=== PATIENT | female | born 1950 | race Caucasian/White ===

== ENCOUNTER 2020-12-02 17:57 | Inpatient (IN) | payer MEDICARE ==
[~2020-12-02] VITALS: Ht 162.6 cm; Wt 81.6 kg
[2020-12-02] MEDS ORDERED: AUGMENTIN 500-500 MG PO (22:23)
[2020-12-02] MEDS ORDERED: MIRAPEX1 MG PO (22:23)
[2020-12-02] MEDS ORDERED: GLUCOTROL 10 MG10 MG PO (22:23)
[2020-12-02] MEDS ORDERED: LASIX40 MG PO (22:24)
[2020-12-02] MEDS ORDERED: PLAVIX75 MG PO (22:24)
[2020-12-02] MEDS ORDERED: GEMFIBROZIL600 MG PO (22:24)
[2020-12-02] MEDS ORDERED: INDERAL TAB 4040 MG PO (22:25)
[2020-12-02] MEDS ORDERED: ZESTRIL20 MG PO (22:25)
[2020-12-02] MEDS ORDERED: POTASSIUM CHLO10 MEQ PO (22:26)
[2020-12-03 00:01] LABS: BUN/CREATININE RATIO 30 (0-10)
--- NOTE | 2020-12-03 00:47 | NUR ---
0014 - SECURITY TECH, LOLITA, CALLED TO NOTIFY OF MD TRANSFERRING PATIENT TO ICU FOR INSULIN DRIP. LOLITA STATES "I WILL SEE IF ANYONE WILL TAKE THEM."
--- NOTE | 2020-12-03 01:59 | NUR ---
0112 DAUGHTER, JEANNE, WAS CALLED TO LET HER KNOW PATIENT WILL BE MOVED TO ICU FOR INSULIN DRIP.
[2020-12-03 04:23] LABS: HEMOGLOBIN 13.9 gm/dl (12.3-15.3); RED BLOOD COUNT 4.53 M/UL (4.00-5.10); WHITE BLOOD COUNT 14.4 K/UL (4.5-11.0)
[2020-12-03 04:42] LABS: BUN/CREATININE RATIO 26 (0-10)
[2020-12-04 05:18] LABS: HEMOGLOBIN 12.6 gm/dl (12.3-15.3); RED BLOOD COUNT 4.09 M/UL (4.00-5.10); WHITE BLOOD COUNT 15.6 K/UL (4.5-11.0)
[2020-12-04 05:33] LABS: BUN/CREATININE RATIO 24 (0-10)
[2020-12-05 02:59] LABS: RED BLOOD COUNT 4.18 M/UL (4.00-5.10); WHITE BLOOD COUNT 16.3 K/UL (4.5-11.0)
[2020-12-05 03:33] LABS: BUN/CREATININE RATIO 17 (0-10)
[2020-12-06 04:23] LABS: HEMOGLOBIN 12.5 gm/dl (12.3-15.3); RED BLOOD COUNT 4.09 M/UL (4.00-5.10); WHITE BLOOD COUNT 13.4 K/UL (4.5-11.0)
[2020-12-06 04:36] LABS: BUN/CREATININE RATIO 17 (0-10)
[2020-12-07 07:38] LABS: HEMOGLOBIN 12.6 gm/dl (12.3-15.3); RED BLOOD COUNT 4.09 M/UL (4.00-5.10)
[2020-12-07 07:58] LABS: BUN/CREATININE RATIO 19 (0-10)
[2020-12-08 04:50] LABS: HEMOGLOBIN 11.7 gm/dl (12.3-15.3); RED BLOOD COUNT 3.81 M/UL (4.00-5.10)
[2020-12-08 05:14] LABS: WHITE BLOOD COUNT 12.2 K/UL (4.5-11.0)
[2020-12-08 05:23] LABS: BUN/CREATININE RATIO 22 (0-10)
--- NOTE | 2020-12-08 21:30 | NUR ---
PATIENT REPEATEDLY ASKING FOR CIGARETTE . REORIENTED THAT THIS IS AN ICU AND NO SMOKING ALLOWED . STATES SHE WILL GO OUTSIDETO SMOKE. REORIENTED THAT [facility] ARE A NON-SMOKING FACILITY. APPEARS TO BE CONFUSED AT TIMES . AT [facility]ED[facility]ES. PATIENT REMAINS UP IN CHAIR AT THIS TIME ALARM ON.
[2020-12-09 05:59] LABS: BUN/CREATININE RATIO 20 (0-10)
[2020-12-09 09:23] LABS: HEMOGLOBIN 10.9 gm/dl (12.3-15.3); RED BLOOD COUNT 3.58 M/UL (4.00-5.10); WHITE BLOOD COUNT 11.8 K/UL (4.5-11.0)
[2020-12-10 04:10] LABS: HEMOGLOBIN 11.6 gm/dl (12.3-15.3); RED BLOOD COUNT 3.81 M/UL (4.00-5.10); WHITE BLOOD COUNT 11.5 K/UL (4.5-11.0)
[2020-12-10 04:38] LABS: BUN/CREATININE RATIO 17 (0-10)
[2020-12-11 05:02] LABS: HEMOGLOBIN 11.1 gm/dl (12.3-15.3); RED BLOOD COUNT 3.64 M/UL (4.00-5.10); WHITE BLOOD COUNT 10.4 K/UL (4.5-11.0)
[2020-12-11 05:18] LABS: BUN/CREATININE RATIO 19 (0-10)
--- NOTE | 2020-12-12 01:54 | NUR ---
PULSE CHECK IN LEFT LEG . NO DP PULSE NOTED WITH DOPPLER , POSITIVE DOPPLERED POSTERIOR TIBAL PULSE . RIGHT LEG PULSE CHECK . NO DP PULSE NOTED WITH DOPPLER, POSITIVE POSTERIOR PULSE WITH DOPPLER . THIS IS UNCHANGED FROM INITIAL ASSESSMENT. REPORTED THAT MD IS AWARE NO DOPPLERED DP PULSES WERE PRESENT.
[2020-12-12 05:23] LABS: HEMOGLOBIN 11.2 gm/dl (12.3-15.3); RED BLOOD COUNT 3.62 M/UL (4.00-5.10); WHITE BLOOD COUNT 10.2 K/UL (4.5-11.0)
--- NOTE | 2020-12-12 19:33 | NUR ---
CONFUSED. KEEPS PULLING OFF MONITORING EQUIPMENT. SHE THINKS SHES IN "[place]" . REORIENTED TO SURROUNDINGS.
--- NOTE | 2020-12-13 03:48 | NUR ---
PULLING MONITORING EQUIPMENT OFF , GETTING UNDRESSED. ATTEMPTING TO REORIENT TO SURROUNDINGS .
[2020-12-13 05:15] LABS: HEMOGLOBIN 10.9 gm/dl (12.3-15.3); RED BLOOD COUNT 3.61 M/UL (4.00-5.10); WHITE BLOOD COUNT 9.5 K/UL (4.5-11.0)
[2020-12-13 05:33] LABS: BUN/CREATININE RATIO 14 (0-10)
[2020-12-13] MEDS ORDERED: FAMOTIDINE20 MG PO (15:39)
[2020-12-13] MEDS ORDERED: HYDROCODON-ACE1 EAC4 PO (15:39)
[2020-12-13] MEDS ORDERED: FISH OIL EC 1,1 EACH PO (15:39)
[2020-12-13] MEDS ORDERED: AMLODIPINE BESYL5 MG PO (15:39)
[2020-12-13] MEDS ORDERED: STIMULANT LAXA1 EACH PO (15:39)
[2020-12-13] MEDS ORDERED: LANTUS INS100 UTS/M1 SC (15:44)
[2020-12-13] MEDS ORDERED: NICOTINE PATCH1 EAC2 TOP (15:44)
[2020-12-13] MEDS ORDERED: HUMALOG 10100 UNITS/ SC ×2 (15:44)
[2020-12-13] MEDS ORDERED: BACTRIM DS TAB1 EACH PO (15:54)
[2020-12-13] MEDS ORDERED: CIPROFLOXACIN750 MG PO (15:54)
--- NOTE | 2020-12-13 16:43 | NUR ---
YOMI (DAUGHTER) WANTS TO BE NOTIFIED IF SHE GOES TO [place] TOMORROW OR NOT AT [phone], SHE REPORTS LIVING CLOSEST TO HER AND HELPS WITH HER
[2020-12-14 04:05] LABS: HEMOGLOBIN 11.5 gm/dl (12.3-15.3); RED BLOOD COUNT 3.78 M/UL (4.00-5.10); WHITE BLOOD COUNT 11.2 K/UL (4.5-11.0)
[2020-12-14 04:38] LABS: BUN/CREATININE RATIO 16 (0-10)
[2020-12-14] MEDS ORDERED: CIPROFLOXACIN750 MG PO (14:31)
[2020-12-15 03:03] LABS: HEMOGLOBIN 11.3 gm/dl (12.3-15.3); RED BLOOD COUNT 3.75 M/UL (4.00-5.10); WHITE BLOOD COUNT 11.5 K/UL (4.5-11.0)
[2020-12-15 03:29] LABS: BUN/CREATININE RATIO 24 (0-10)
--- NOTE | 2020-12-15 17:59 | NUR ---
AT 1700 ACCUCHECK, PATIENT WAS HYPOGLYCEMIC. GAVE PATIENT JUICE PER PATIENT REQUEST. WENT BACK TO RE-CHECK, AND PATIENT HAD DRUNK JUICE AND EATEN DINNER. RECHECKED FSBS AND PATIENT WAS [id number]. SHE REFUSED INSULIN AT THIS POINT, SAID IT WAS JUST HIGH CAUSE SHE HAD JUST EATEN AND SHE DIDN'T WANT IT TO GET LOW AGAIN
[2020-12-16 04:15] LABS: HEMOGLOBIN 11.5 gm/dl (12.3-15.3); RED BLOOD COUNT 3.77 M/UL (4.00-5.10); WHITE BLOOD COUNT 9.1 K/UL (4.5-11.0)
[2021-02-05] MEDS ORDERED: LEVOFLOXACIN500 MG PO (19:32)
[2021-02-05] MEDS ORDERED: BACTRIM DS TAB1 EACH PO (19:32)
== END 2020-12-17 17:51 | DRG 853 ==
LOC: PROG CARE 21:54 → MED SURG 4 21:54 → CCU 21:54 → CDU 12-03 00:16 → CCU 12-03 01:58 → MED SURG 4 12-13 15:19
PROVIDERS: Family Medicine; Internal Medicine; Surgery; ADMIT Internal Medicine
PROC: B24BZZZ Ultrasonography of Heart with Aorta (ICD-10-PCS; 2020-12-03)
PROC: 047K3ZZ Dilation of Right Femoral Artery, Percutaneous Approach (ICD-10-PCS; 2020-12-05)
PROC: 047M3ZZ Dilation of Right Popliteal Artery, Percutaneous Approach (ICD-10-PCS; 2020-12-05)
PROC: 047T3ZZ Dilation of Right Peroneal Artery, Percutaneous Approach (ICD-10-PCS; 2020-12-05)
PROC: 047P3ZZ Dilation of Right Anterior Tibial Artery, Percutaneous Approach (ICD-10-PCS; 2020-12-05)
PROC: 047L3Z1 Dilation of Left Femoral Artery using Drug-Coated Balloon, Percutaneous Approach (ICD-10-PCS; 2020-12-10)
PROC: 04FJ3ZZ Fragmentation of Left External Iliac Artery, Percutaneous Approach (ICD-10-PCS; 2020-12-10)
PROC: 04FL3ZZ Fragmentation of Left Femoral Artery, Percutaneous Approach (ICD-10-PCS; 2020-12-10)
PROC: 047N3Z1 Dilation of Left Popliteal Artery using Drug-Coated Balloon, Percutaneous Approach (ICD-10-PCS; principal; 2020-12-10 08:30)
DX: A41.52 Sepsis due to Pseudomonas (principal); E11.10 Type 2 diabetes mellitus with ketoacidosis without coma; G93.41 Metabolic encephalopathy; E11.52 Type 2 diabetes mellitus with diabetic peripheral angiopathy with gangrene; I96 Gangrene, not elsewhere classified; L03.116 Cellulitis of left lower limb; F05 Delirium due to known physiological condition; I82.811 Embolism and thrombosis of superficial veins of right lower extremity; L97.929 Non-pressure chronic ulcer of unspecified part of left lower leg with unspecified severity; A41.89 Other specified sepsis; E78.5 Hyperlipidemia, unspecified; E11.628 Type 2 diabetes mellitus with other skin complications; L89.152 Pressure ulcer of sacral region, stage 2; K80.50 Calculus of bile duct without cholangitis or cholecystitis without obstruction; I16.0 Hypertensive urgency; F17.200 Nicotine dependence, unspecified, uncomplicated; E87.6 Hypokalemia; E27.8 Other specified disorders of adrenal gland; E11.622 Type 2 diabetes mellitus with other skin ulcer; F41.9 Anxiety disorder, unspecified; F32.9 Major depressive disorder, single episode, unspecified; D28.7 Benign neoplasm of other specified female genital organs; Z82.49 Family history of ischemic heart disease and other diseases of the circulatory system; Z79.84 Long term (current) use of oral hypoglycemic drugs; Z79.02 Long term (current) use of antithrombotics/antiplatelets; Z79.899 Other long term (current) drug therapy
CPT/HCPCS: ECHO; 36415; 71045; 75630; 80048; 80053; 80202; 80307; 82009; 82140; 82550; 82553; 82607; 82962; 83036; 83605; 83735; 83880; 84100; 84132; 84439; 84443; 84484; 85025; 85027; 85610; 85730; 86140; 86850; 86900; 86901; 87040; 87070; 87077; 87081; 87086; 87186; 87205; 93005; 93306; 93925; 93970; 97110; 97110-GP-CQ; 97116; 97116-GP-CQ; 97161; 97530; 97530-GP-CQ; A6212; C1725; C1769; C1887; C1894; C2623; J0360; J0692; J1100; J1644; J1650; J2001; J2250; J2270; J2370; J2405; J2704; J2710; J2720; J3010; J3370; J3475; J7040; J7050; J7070; J7120; Q9962; U0002

== ENCOUNTER → 2020-12-23 | Outpatient (CLI) | payer MEDICARE ==
[~2020-12-23] MED LIST: AMLODIPINE BESYL5 MG PO; AMOXICILLIN875 MG PO; AUGMENTIN 500-500 MG PO; BACTRIM DS TAB1 EACH PO; BUDESONIDE0.5 MG/2 M NEB; CHRONULAC20 GM/30 M PO; CIPROFLOXACIN750 MG PO; CLOPIDOGREL75 MG PO; DOCUSATE SODIU100 MG PO; DONEPEZIL HCL5 MG PO; DOXYCYCLINE HY100 MG PO; FAMOTIDINE20 MG PO; FERROUS SULFAT325 M2 PO; FISH OIL EC 1,1 EACH PO; FLORASTOR250 MG PO; FUROSEMIDE40 MG PO; GEMFIBROZIL600 MG PO; GLUCOTROL 10 MG10 MG PO; HUMALOG 10100 UNITS/ SC; HYDRALAZINE HCL25 MG PO; HYDROCODON-ACE1 EAC2 PO; HYDROCODON-ACE1 EAC4 PO; INDERAL TAB 4040 MG PO; INSULIN LI100 UNIT/2 SC; IPRAT-ALBUT 0.5-3 ML NEB; LANTUS INS100 UTS/M1 SC; LANTUS SOL100 UNIT/1 SC; LASIX40 MG PO; LEVOFLOXACIN500 MG PO; LEVOFLOXACIN750 MG PO; LIPITOR TAB 1010 MG PO; LISINOPRIL20 MG PO; LOPID600 MG PO; LOPRESSOR 50 MG50 MG PO; MIRAPEX1 MG PO; MONTELUKAST SOD10 MG PO; NICOTINE PATCH1 EAC2 TOP; PLAVIX75 MG PO; POTASSIUM CHLO10 MEQ PO; STIMULANT LAXA1 EACH PO; ZESTRIL20 MG PO; ZOCOR20 MG PO; ZOFRAN 4 MG TAB4 MG PO
== END ==
LOC: WCC 09:00
DX: E11.622 Type 2 diabetes mellitus with other skin ulcer (principal); L97.921 Non-pressure chronic ulcer of unspecified part of left lower leg limited to breakdown of skin; L97.911 Non-pressure chronic ulcer of unspecified part of right lower leg limited to breakdown of skin; I73.9 Peripheral vascular disease, unspecified; L97.929 Non-pressure chronic ulcer of unspecified part of left lower leg with unspecified severity; L97.919 Non-pressure chronic ulcer of unspecified part of right lower leg with unspecified severity; I25.10 Atherosclerotic heart disease of native coronary artery without angina pectoris; E78.5 Hyperlipidemia, unspecified; F32.9 Major depressive disorder, single episode, unspecified; F41.9 Anxiety disorder, unspecified; I10 Essential (primary) hypertension; Z79.4 Long term (current) use of insulin
CPT/HCPCS: G0463

== ENCOUNTER → 2020-12-31 | Outpatient (CLI) | payer MEDICARE | LOC: WCC 11:00 | DX: I87.2 Venous insufficiency (chronic) (peripheral) (principal); L97.921 Non-pressure chronic ulcer of unspecified part of left lower leg limited to breakdown of skin; L97.912 Non-pressure chronic ulcer of unspecified part of right lower leg with fat layer exposed; E11.51 Type 2 diabetes mellitus with diabetic peripheral angiopathy without gangrene; E78.5 Hyperlipidemia, unspecified; F32.9 Major depressive disorder, single episode, unspecified; F41.9 Anxiety disorder, unspecified; I10 Essential (primary) hypertension; Z79.4 Long term (current) use of insulin; Z79.01 Long term (current) use of anticoagulants; Z79.2 Long term (current) use of antibiotics; Z79.899 Other long term (current) drug therapy | CPT/HCPCS: 97597; 97598 ==

== ENCOUNTER → 2021-01-08 | Outpatient (CLI) | payer MEDICARE | LOC: WCC 10:00 | DX: E11.622 Type 2 diabetes mellitus with other skin ulcer (principal); L97.929 Non-pressure chronic ulcer of unspecified part of left lower leg with unspecified severity; L97.919 Non-pressure chronic ulcer of unspecified part of right lower leg with unspecified severity; E11.51 Type 2 diabetes mellitus with diabetic peripheral angiopathy without gangrene; I10 Essential (primary) hypertension; I25.10 Atherosclerotic heart disease of native coronary artery without angina pectoris; E78.5 Hyperlipidemia, unspecified; F32.9 Major depressive disorder, single episode, unspecified; F41.9 Anxiety disorder, unspecified; Z79.4 Long term (current) use of insulin | CPT/HCPCS: 97597 ==

== ENCOUNTER → 2021-01-22 | Outpatient (CLI) | payer MEDICARE | LOC: WCC 10:00 | DX: E11.622 Type 2 diabetes mellitus with other skin ulcer (principal); L97.921 Non-pressure chronic ulcer of unspecified part of left lower leg limited to breakdown of skin; L97.912 Non-pressure chronic ulcer of unspecified part of right lower leg with fat layer exposed; E11.51 Type 2 diabetes mellitus with diabetic peripheral angiopathy without gangrene; I25.10 Atherosclerotic heart disease of native coronary artery without angina pectoris; E78.5 Hyperlipidemia, unspecified; F32.9 Major depressive disorder, single episode, unspecified; F41.9 Anxiety disorder, unspecified; I10 Essential (primary) hypertension; Z79.4 Long term (current) use of insulin; Z79.02 Long term (current) use of antithrombotics/antiplatelets; Z79.2 Long term (current) use of antibiotics; Z79.899 Other long term (current) drug therapy ==

== ENCOUNTER → 2021-01-31 | Outpatient (CLI) | payer MEDICARE | LOC: WCC 08:29 | DX: E11.622 Type 2 diabetes mellitus with other skin ulcer (principal); L97.921 Non-pressure chronic ulcer of unspecified part of left lower leg limited to breakdown of skin; L97.912 Non-pressure chronic ulcer of unspecified part of right lower leg with fat layer exposed; E11.51 Type 2 diabetes mellitus with diabetic peripheral angiopathy without gangrene; I25.10 Atherosclerotic heart disease of native coronary artery without angina pectoris; E78.5 Hyperlipidemia, unspecified; F32.9 Major depressive disorder, single episode, unspecified; F41.9 Anxiety disorder, unspecified; I10 Essential (primary) hypertension; Z88.1 Allergy status to other antibiotic agents; Z79.4 Long term (current) use of insulin; Z79.02 Long term (current) use of antithrombotics/antiplatelets; Z79.899 Other long term (current) drug therapy | CPT/HCPCS: 87070; 87077; 87186; 87205; 97597 ==

== ENCOUNTER 2021-02-07 11:13 | Inpatient (IN) | payer MEDICARE ==
[~2021-02-07] VITALS: Ht 154.9 cm; Wt 81.8 kg
[~2021-02-07 11:13] MED LIST changes: -AMOXICILLIN875 MG PO; -BUDESONIDE0.5 MG/2 M NEB; -CHRONULAC20 GM/30 M PO; -CLOPIDOGREL75 MG PO; -DOCUSATE SODIU100 MG PO; -DONEPEZIL HCL5 MG PO; -DOXYCYCLINE HY100 MG PO; -FERROUS SULFAT325 M2 PO; -FLORASTOR250 MG PO; -FUROSEMIDE40 MG PO; -HYDRALAZINE HCL25 MG PO; -HYDROCODON-ACE1 EAC2 PO; -INSULIN LI100 UNIT/2 SC; -IPRAT-ALBUT 0.5-3 ML NEB; -LANTUS SOL100 UNIT/1 SC; -LEVOFLOXACIN750 MG PO; -LIPITOR TAB 1010 MG PO; -LISINOPRIL20 MG PO; -LOPID600 MG PO; -LOPRESSOR 50 MG50 MG PO; -MONTELUKAST SOD10 MG PO; -ZOCOR20 MG PO; -ZOFRAN 4 MG TAB4 MG PO
[2021-02-07 12:04] LABS: HEMOGLOBIN 9.3 gm/dl (12.3-15.3); RED BLOOD COUNT 3.06 M/UL (4.00-5.10)
[2021-02-07 12:34] LABS: BUN/CREATININE RATIO 17 (0-10)
[2021-02-07] MEDS ORDERED: CLOPIDOGREL75 MG PO (19:33)
[2021-02-07] MEDS ORDERED: HYDROCODON-ACE1 EAC2 PO (19:33)
[2021-02-07] MEDS ORDERED: LOPID600 MG PO (19:34)
[2021-02-07] MEDS ORDERED: FUROSEMIDE40 MG PO (19:34)
[2021-02-07] MEDS ORDERED: GLUCOTROL 10 MG10 MG PO (19:35)
[2021-02-07] MEDS ORDERED: LISINOPRIL20 MG PO (19:35)
[2021-02-07] MEDS ORDERED: HYDRALAZINE HCL25 MG PO (19:35)
[2021-02-07] MEDS ORDERED: LOPRESSOR 50 MG50 MG PO (19:36)
[2021-02-07] MEDS ORDERED: MONTELUKAST SOD10 MG PO (19:36)
[2021-02-07] MEDS ORDERED: POTASSIUM CHLO10 MEQ PO (19:37)
[2021-02-07] MEDS ORDERED: ZOFRAN 4 MG TAB4 MG PO (19:37)
[2021-02-07] MEDS ORDERED: MIRAPEX1 MG PO (19:38)
[2021-02-07] MEDS ORDERED: ZOCOR20 MG PO (19:38)
[2021-02-07] MEDS ORDERED: AMLODIPINE BESYL5 MG PO (19:39)
[2021-02-07] MEDS ORDERED: LIPITOR TAB 1010 MG PO (19:39)
[2021-02-07] MEDS ORDERED: LANTUS SOL100 UNIT/1 SC (19:40)
[2021-02-07] MEDS ORDERED: FERROUS SULFAT325 M2 PO (19:40)
[2021-02-07] MEDS ORDERED: INSULIN LI100 UNIT/2 SC (19:41)
[2021-02-07] MEDS ORDERED: INDERAL TAB 4040 MG PO (19:46)
[2021-02-07] MEDS ORDERED: DONEPEZIL HCL5 MG PO (19:48)
[2021-02-08 02:43] LABS: HEMOGLOBIN 8.8 gm/dl (12.3-15.3); RED BLOOD COUNT 2.9 M/UL (4.00-5.10); WHITE BLOOD COUNT 7.1 K/UL (4.5-11.0)
[2021-02-10 03:42] LABS: HEMOGLOBIN 8.5 gm/dl (12.3-15.3); RED BLOOD COUNT 2.81 M/UL (4.00-5.10); WHITE BLOOD COUNT 6.2 K/UL (4.5-11.0)
[2021-02-10] MEDS ORDERED: CHRONULAC20 GM/30 M PO (09:10)
[2021-02-10] MEDS ORDERED: FUROSEMIDE40 MG PO (09:10)
[2021-02-10] MEDS ORDERED: IPRAT-ALBUT 0.5-3 ML NEB (09:10)
[2021-02-10] MEDS ORDERED: BUDESONIDE0.5 MG/2 M NEB (09:10)
[2021-02-10] MEDS ORDERED: DOCUSATE SODIU100 MG PO (09:10)
[2021-02-10] MEDS ORDERED: LEVOFLOXACIN500 MG PO (09:13)
[2021-02-10] MEDS ORDERED: AMOXICILLIN875 MG PO (15:25)
[2021-02-10] MEDS ORDERED: FLORASTOR250 MG PO (15:25)
[2021-02-10] MEDS ORDERED: DOXYCYCLINE HY100 MG PO (15:25)
[2021-02-10] MEDS ORDERED: LEVOFLOXACIN750 MG PO (15:25)
== END 2021-02-10 19:00 | disposition home health service (06) | DRG 291 ==
LOC: ER1 11:13 → CDU 16:29 → PROG CARE 16:29
PROVIDERS: Emergency Medicine; Internal Medicine; Physician Assistant Medical; ADMIT Internal Medicine
PROC: B24BZZ4 Ultrasonography of Heart with Aorta, Transesophageal (ICD-10-PCS; principal; 2021-02-08)
DX: I11.0 Hypertensive heart disease with heart failure (principal); J18.9 Pneumonia, unspecified organism; J96.21 Acute and chronic respiratory failure with hypoxia; J96.22 Acute and chronic respiratory failure with hypercapnia; J44.0 Chronic obstructive pulmonary disease with (acute) lower respiratory infection; Z68.41 Body mass index [BMI] 40.0-44.9, adult; Z20.822 Contact with and (suspected) exposure to COVID-19; I50.33 Acute on chronic diastolic (congestive) heart failure; E78.5 Hyperlipidemia, unspecified; B95.62 Methicillin resistant Staphylococcus aureus infection as the cause of diseases classified elsewhere; B96.5 Pseudomonas (aeruginosa) (mallei) (pseudomallei) as the cause of diseases classified elsewhere; E66.9 Obesity, unspecified; B95.2 Enterococcus as the cause of diseases classified elsewhere; L08.9 Local infection of the skin and subcutaneous tissue, unspecified; I25.10 Atherosclerotic heart disease of native coronary artery without angina pectoris; E11.51 Type 2 diabetes mellitus with diabetic peripheral angiopathy without gangrene; I08.3 Combined rheumatic disorders of mitral, aortic and tricuspid valves; I27.20 Pulmonary hypertension, unspecified; F03.90 Unspecified dementia, unspecified severity, without behavioral disturbance, psychotic disturbance, mood disturbance, and anxiety; E11.621 Type 2 diabetes mellitus with foot ulcer; F17.210 Nicotine dependence, cigarettes, uncomplicated; L97.509 Non-pressure chronic ulcer of other part of unspecified foot with unspecified severity; Z79.4 Long term (current) use of insulin; Z95.5 Presence of coronary angioplasty implant and graft; Z88.1 Allergy status to other antibiotic agents; Z82.49 Family history of ischemic heart disease and other diseases of the circulatory system; Z87.19 Personal history of other diseases of the digestive system
CPT/HCPCS: ECHO; 0240U; 36415; 36600; 71045; 80048; 80053; 80202; 81001; 82550; 82553; 82803; 82962; 83605; 83690; 83735; 83880; 84132; 84484; 85025; 85027; 87040; 93005; 93306; 94640; 94660; 94664; 94760; 96374; 97162; 99285; J1120; J1940; J1956; J3370; J7070